=== PATIENT | female | born 1965 | race African-American/Black ===

== ENCOUNTER 2020-12-26 15:32 | Emergency (ER) | payer OTHER ==
[~2020-12-26 15:32] MED LIST: NORCO 7.5-3251 EACH PO
[2020-12-26 16:49] LABS: RED BLOOD COUNT 4.65 M/UL (4.00-5.10)
[2020-12-26 17:03] LABS: BUN/CREATININE RATIO 16 (0-10)
== END 2020-12-26 20:55 | disposition home or self-care (01) ==
LOC: ER1 15:32
PROVIDERS: Family Medicine
DX: R10.10 Upper abdominal pain, unspecified (principal); R11.0 Nausea; I10 Essential (primary) hypertension; E11.9 Type 2 diabetes mellitus without complications; Z85.3 Personal history of malignant neoplasm of breast; Z88.6 Allergy status to analgesic agent
CPT/HCPCS: 80053; 83690; 84703; 85025; 99284; Q9967

== ENCOUNTER → 2021-05-24 | Outpatient (CLI) | payer OTHER ==
[2021-05-25 07:11] LABS: HBSAG SCREEN Negative (Negative); HEP B CORE AB, TOT Negative (Negative)
[2021-05-25 08:14] LABS: RHEUMATOID ARTHRITIS FACTOR <10.0 IU/mL (0.0-13.9)
[2021-05-25 09:14] LABS: HCV AB <0.1 (0.0-0.9)
[2021-05-27 18:12] LABS: QUANTIFERON MITOGEN VALUE >10.00 IU/mL (.); QUANTIFERON NIL VALUE 0.11 IU/mL (.); QUANTIFERON TB2 AG VALUE 0.12 IU/mL (.); QUANTIFERON-TB GOLD PLUS Negative (Negative)
== END ==
LOC: LAB 11:22
PROVIDERS: Nurse Practitioner Family
DX: Z11.59 Encounter for screening for other viral diseases (principal); M79.10 Myalgia, unspecified site; M79.89 Other specified soft tissue disorders; Z79.899 Other long term (current) drug therapy
CPT/HCPCS: 36415; 73130; 73630; 82550; 83520; 85652; 86140; 86200; 86431; 86704; 86803; 87340